=== PATIENT | female | born 1940 | race Caucasian/White ===

== ENCOUNTER 2021-09-08 19:12 | Inpatient (IN) ==
[2021-09-08] MEDS ORDERED: Famotidine 20 MG/2 ML VIAL IVP ONE (19:21)
[2021-09-08] MEDS ORDERED: GI Cocktail 40 ML EACH PO ONE (19:21)
[2021-09-08 20:03] LABS: Basophils % 0.5 %; Eosinophils # 0.1 K/mcL (0.0-0.6); Eosinophils % 0.9 %; Hematocrit 44.3 % (35.3-44.9); Hemoglobin 14.2 g/dL (11.5-15.4); Immature Granulocytes % 1.1 % (0-4); Lymphocytes % 15.9 %; Mean Corpuscular HGB Conc 32.1 g/dL (31.6-35.5); Mean Corpuscular Hemoglobin 28.4 pg (28.0-33.3); Mean Corpuscular Volume 88.6 fL (83.0-100.0); Mean Platelet Volume 10.4 fL (9.4-12.4); Monocytes # 0.8 K/mcL (0.0-1.3); Monocytes % 12.3 %; Neutrophils # 4.4 K/mcL (1.6-8.9); Platelet Count 226 K/mcL (140-400); Red Cell Distribution Width 14.4 % (11.5-14.5); Segmented Neutrophils % 69.3 %; White Blood Count 6.4 K/mcL (4.3-11.1)
[2021-09-08 20:14] LABS: INR 1.1; Prothrombin Time 12.8 Seconds (9.4-12.1)
[2021-09-08 20:16] LABS: Activated Partial Thrombo Time 40.9 Seconds (26.0-36.0)
[2021-09-08 20:21] LABS: Alanine Aminotransferase 316 Units/L (7-52); Albumin 3.9 g/dL (3.5-5.7); Albumin/Globulin Ratio 1.2 (1.1-2.2); Alkaline Phosphatase 351 Units/L (34-104); Aspartate Amino Transferase 224 Units/L (13-39); BUN/Creatinine Ratio 12 (6-26); Bilirubin,Direct 2.6 mg/dL (0.0-0.2); Bilirubin,Indirect 1.6 mg/dL (0.0-1.0); Bilirubin,Total 4.2 mg/dL (0.3-1.0); Blood Urea Nitrogen 9 mg/dL (8-23); Calcium 8.9 mg/dL (8.6-10.3); Carbon Dioxide 28 mEq/L (23-29); Chloride 100 mEq/L (98-107); Globulin 3.3 g/dL (2.4-3.5); Glucose 172 mg/dL (70-105); Lipase 7 Units/L (11-82); Osmolality,Calculated 287 (280-300); Potassium 3.4 mEq/L (3.5-5.1); Sodium 137 mEq/L (136-145); Total Protein 7.2 g/dL (6.4-8.9); Troponin I < 0.03 ng/mL (< 0.04); eGFR For African Americans > 60 (> 60); eGFR For Non-African Americans > 60 (> 60)
[2021-09-08] MEDS ORDERED: Isovue-370 500 ML BOTTLE IVP ONE (20:31)
[2021-09-08 20:32] LABS: Bacteria,Urine Few per hpf (None-Few); Bilirubin,Urine Moderate (Negative); Blood,Urine Negative (Negative); Clarity,Urine Turbid (Clear); Color,Urine Dark-Yellow (Yellow); Glucose,Urine (UA) Normal (Normal); Hyaline Casts,Urine Few per lpf (None Seen); Ketones,Urine Negative (Negative); Leukocyte Esterase,Urine Trace (Negative); Mucus,Urine Few per lpf (None-Few); Nitrite,Urine Negative (Negative); PH,Urine 6.5 pH Units (5.0-8.0); Protein,Urine Trace mg/dL (Neg-Trace); RBC,Urine 0-3 per hpf (0-3); Specific Gravity,Urine 1.019 (1.010-1.025); Squamous Epithelial Cell,Urine Many per hpf (None-Few)
[2021-09-08 20:35] LABS: Influenza A PCR Negative (Negative); Influenza B PCR Negative (Negative); Resp. Syncytial Virus PCR Negative (Negative)
[2021-09-08 20:39] LABS: SARS-CoV-2 by PCR (In House) Negative (Negative)
[2021-09-08] MEDS ORDERED: cefTRIAXone 1,000 MG in Water for inj. (sterile) 10 ML IVP ONE (21:50)
[2021-09-08] MEDS ORDERED: Ondansetron 4 MG/2 ML VIAL IVP PRN (23:29)
[2021-09-08] MEDS ORDERED: Naloxone 0.4 MG/ML INJ IVP PRN (23:29)
[2021-09-09] MEDS: 0.9 % Sodium Chloride 1,000 ML IVC SCH ×2 (00:32→15:13)
[2021-09-09] MEDS ORDERED: Dextrose 4 GM Chewable Tablets PO PRN ×2 (02:01)
[2021-09-09] MEDS ORDERED: D5% in Water 1,000 ML IVC PRN (02:01)
[2021-09-09] MEDS ORDERED: *HR* Dextrose 50 % in Water (Syg) 50 ML SYRINGE IVP PRN (02:01)
[2021-09-09] MEDS: rOPINIRole 1 MG TABLET PO SCH ×2 (03:12→20:43)
[2021-09-09 05:33] LABS: Basophils % 0.6 %; Eosinophils # 0.1 K/mcL (0.0-0.6); Hematocrit 40.8 % (35.3-44.9); Hemoglobin 12.9 g/dL (11.5-15.4); Immature Granulocytes % 1.2 % (0-4); Lymphocytes # 1.1 K/mcL (0.6-4.6); Lymphocytes % 23.2 %; Mean Corpuscular HGB Conc 31.6 g/dL (31.6-35.5); Mean Corpuscular Volume 88.7 fL (83.0-100.0); Mean Platelet Volume 10.3 fL (9.4-12.4); Monocytes # 0.7 K/mcL (0.0-1.3); Monocytes % 13.9 %; Neutrophils # 2.9 K/mcL (1.6-8.9); Platelet Count 204 K/mcL (140-400); Red Cell Distribution Width 14.3 % (11.5-14.5); Segmented Neutrophils % 60.1 %; White Blood Count 4.9 K/mcL (4.3-11.1)
[2021-09-09 05:40] LABS: INR 1.2
[2021-09-09] MEDS: Insulin LISPRO 300 UNITS/3 ML VIAL SUBQ SCH ×2 (05:48→12:17)
[2021-09-09 05:57] LABS: Alanine Aminotransferase 276 Units/L (7-52); Albumin 3.6 g/dL (3.5-5.7); Albumin/Globulin Ratio 1.2 (1.1-2.2); Alkaline Phosphatase 309 Units/L (34-104); Aspartate Amino Transferase 206 Units/L (13-39); BUN/Creatinine Ratio 15 (6-26); Bilirubin,Direct 2.4 mg/dL (0.0-0.2); Bilirubin,Indirect 1.3 mg/dL (0.0-1.0); Bilirubin,Total 3.7 mg/dL (0.3-1.0); Blood Urea Nitrogen 9 mg/dL (8-23); Calcium 8.6 mg/dL (8.6-10.3); Carbon Dioxide 23 mEq/L (23-29); Chloride 104 mEq/L (98-107); Chol/HDL Ratio 5.3 (0-4.9); Cholesterol 249 mg/dL (< 200); Globulin 2.9 g/dL (2.4-3.5); Glucose 126 mg/dL (70-105); HDL Cholesterol 47 mg/dL (40-59); LDL Cholesterol,Calculated 178 mg/dL (< 100); Magnesium 1.8 mg/dL (1.6-2.6); Osmolality,Calculated 284 (280-300); Potassium 3.8 mEq/L (3.5-5.1); Sodium 137 mEq/L (136-145); Total Protein 6.5 g/dL (6.4-8.9); Triglycerides 119 mg/dL (< 150); eGFR For African Americans > 60 (> 60); eGFR For Non-African Americans > 60 (> 60)
[2021-09-09 06:19] LABS: Hepatitis B Surface Antigen Nonreactive (Nonreactive)
[2021-09-09 06:48] LABS: Hepatitis B Core IgM Nonreactive (Nonreactive)
[2021-09-09 06:50] LABS: Hepatitis A Antibody IgM Nonreactive (Nonreactive); Hepatitis C Virus Antibody Nonreactive (Nonreactive)
[2021-09-09] MEDS: amLODIPine 5 MG TABLET PO SCH (09:04)
[2021-09-09] MEDS: cefTRIAXone 1,000 MG in 0.9 % Sodium Chloride 10 ML IVP SCH (09:04)
[2021-09-09 11:20] LABS: Estimated Average Glucose 157 mg/dl; Hemoglobin A1C 7.1 %
[2021-09-09] MEDS ORDERED: *HR* FentaNYL (PF) 100 MCG/2 ML VIAL ONE (11:36)
[2021-09-09] MEDS ORDERED: Albuterol 2.5 MG/3 ML NEBULIZER IH PRN (11:41)
[2021-09-09] MEDS ORDERED: Naloxone 0.4 MG/ML INJ IVP PRN (11:41)
[2021-09-09] MEDS ORDERED: Nitroglycerin 0.4 MG TAB.SUBL SL PRN (11:41)
[2021-09-09] MEDS ORDERED: *HR* Rocuronium Bromide 50 MG/5 ML VIAL ONE (11:42)
[2021-09-09] MEDS ORDERED: *HR* Propofol 200 MG/20 ML VIAL IVP ONE (11:42)
[2021-09-09] MEDS ORDERED: Lidocaine -MPF 2% 2 ML VIAL ONE (11:42)
[2021-09-09] MEDS ORDERED: Indomethacin 50 MG SUPP.RECT RC ONE (12:15)
[2021-09-09] MEDS: Ciprofloxacin HCL Soln 5 ML BOTTLE BOTH EYES SCH ×3 (12:17→20:44)
[2021-09-09] MEDS ORDERED: Insulin LISPRO 300 UNITS/3 ML VIAL SUBQ SCH ×2 (16:30→21:00)
[2021-09-09] MEDS ORDERED: Insulin DETEMIR 100 UNIT/ML X5UNITS SUBQ SCH (21:00)
[2021-09-09] MEDS ORDERED: Latanoprost 2.5 ML BOTTLE BOTH EYES SCH (21:00)
[2021-09-10 01:32] LABS: Basophils % 0.4 %; Hematocrit 41.4 % (35.3-44.9); Hemoglobin 13.1 g/dL (11.5-15.4); Immature Granulocytes % 0.8 % (0-4); Lymphocytes # 0.7 K/mcL (0.6-4.6); Lymphocytes % 13.2 %; Mean Corpuscular HGB Conc 31.6 g/dL (31.6-35.5); Mean Corpuscular Hemoglobin 28.5 pg (28.0-33.3); Mean Platelet Volume 10.6 fL (9.4-12.4); Monocytes # 0.4 K/mcL (0.0-1.3); Monocytes % 6.9 %; Neutrophils # 4.1 K/mcL (1.6-8.9); Platelet Count 198 K/mcL (140-400); Red Cell Distribution Width 14.5 % (11.5-14.5); Segmented Neutrophils % 78.7 %; White Blood Count 5.2 K/mcL (4.3-11.1)
[2021-09-10 02:19] LABS: Alanine Aminotransferase 257 Units/L (7-52); Albumin 3.4 g/dL (3.5-5.7); Albumin/Globulin Ratio 1.1 (1.1-2.2); Alkaline Phosphatase 285 Units/L (34-104); Aspartate Amino Transferase 186 Units/L (13-39); BUN/Creatinine Ratio 15 (6-26); Bilirubin,Direct 0.3 mg/dL (0.0-0.2); Bilirubin,Indirect 1.2 mg/dL (0.0-1.0); Bilirubin,Total 1.5 mg/dL (0.3-1.0); Blood Urea Nitrogen 8 mg/dL (8-23); Calcium 8.4 mg/dL (8.6-10.3); Carbon Dioxide 23 mEq/L (23-29); Chloride 105 mEq/L (98-107); Globulin 3.1 g/dL (2.4-3.5); Glucose 183 mg/dL (70-105); Magnesium 1.9 mg/dL (1.6-2.6); Osmolality,Calculated 281 (280-300); Sodium 134 mEq/L (136-145); Total Protein 6.5 g/dL (6.4-8.9); eGFR For African Americans > 60 (> 60); eGFR For Non-African Americans > 60 (> 60)
[2021-09-10] MEDS: Ciprofloxacin HCL Soln 5 ML BOTTLE BOTH EYES SCH ×7 (04:16→23:51)
[2021-09-10] MEDS ORDERED: Insulin LISPRO 300 UNITS/3 ML VIAL SUBQ SCH ×2 (06:00→12:00)
[2021-09-10] MEDS: amLODIPine 5 MG TABLET PO SCH (07:50)
[2021-09-10] MEDS: cefTRIAXone 1,000 MG in 0.9 % Sodium Chloride 10 ML IVP SCH (07:50)
[2021-09-10] MEDS ORDERED: *HR* Propofol 200 MG/20 ML VIAL IVP ONE (08:55)
[2021-09-10] MEDS ORDERED: Lidocaine -MPF 4% 5 ML AMPUL ONE (08:55)
[2021-09-10] MEDS ORDERED: Lidocaine -MPF 2% 2 ML VIAL ONE (08:55)
[2021-09-10] MEDS ORDERED: *HR* Succinylcholine 200 MG/10 ML VIAL IVP ONE (08:55)
[2021-09-10] MEDS ORDERED: *HR* FentaNYL (PF) 100 MCG/2 ML VIAL ONE (08:55)
[2021-09-10] MEDS ORDERED: Ondansetron 4 MG/2 ML VIAL ONE (08:55)
[2021-09-10] MEDS ORDERED: *HR* Rocuronium Bromide 50 MG/5 ML VIAL ONE (08:55)
[2021-09-10] MEDS ORDERED: *HR* OxyCODONE Immed Rel 5 MG TABLET PO PRN ×2 (09:21→11:13)
[2021-09-10] MEDS: *HR* HYDROmorphone PF 0.5 MG/0.5 ML SYRINGE IVP PRN ×3 (10:34→10:54)
[2021-09-10] MEDS ORDERED: Naloxone 0.4 MG/ML INJ IVP PRN ×2 (11:13)
[2021-09-10] MEDS ORDERED: D5% in Water 1,000 ML IVC PRN (11:13)
[2021-09-10] MEDS ORDERED: *HR* HYDROmorphone PF 0.5 MG/0.5 ML SYRINGE IVP PRN (11:13)
[2021-09-10] MEDS ORDERED: Nitroglycerin 0.4 MG TAB.SUBL SL PRN (11:13)
[2021-09-10] MEDS ORDERED: Dextrose 4 GM Chewable Tablets PO PRN ×2 (11:13)
[2021-09-10] MEDS ORDERED: Ondansetron 4 MG/2 ML VIAL IVP PRN (11:13)
[2021-09-10] MEDS ORDERED: *HR* Dextrose 50 % in Water (Syg) 50 ML SYRINGE IVP PRN (11:13)
[2021-09-10] MEDS: Insulin LISPRO 300 UNITS/3 ML VIAL SUBQ SCH (17:08)
[2021-09-10] MEDS: rOPINIRole 1 MG TABLET PO SCH (20:02)
[2021-09-10] MEDS: Latanoprost 2.5 ML BOTTLE BOTH EYES SCH (20:02)
[2021-09-11 05:19] LABS: Basophils % 0.3 %; Eosinophils # 0.1 K/mcL (0.0-0.6); Hematocrit 37.7 % (35.3-44.9); Lymphocytes # 1.5 K/mcL (0.6-4.6); Mean Corpuscular HGB Conc 30.2 g/dL (31.6-35.5); Mean Corpuscular Hemoglobin 27.5 pg (28.0-33.3); Mean Corpuscular Volume 91.1 fL (83.0-100.0); Mean Platelet Volume 10.5 fL (9.4-12.4); Monocytes # 0.8 K/mcL (0.0-1.3); Monocytes % 13.8 %; Neutrophils # 3.4 K/mcL (1.6-8.9); Platelet Count 190 K/mcL (140-400); Red Blood Count 4.14 M/mcL (3.82-4.97); Red Cell Distribution Width 14.9 % (11.5-14.5); Segmented Neutrophils % 57.9 %; White Blood Count 5.9 K/mcL (4.3-11.1)
[2021-09-11 05:23] LABS: Hemoglobin 11.4 g/dL (11.5-15.4)
[2021-09-11] MEDS: Ciprofloxacin HCL Soln 5 ML BOTTLE BOTH EYES SCH ×6 (05:39→23:39)
[2021-09-11 05:42] LABS: Alanine Aminotransferase 238 Units/L (7-52); Albumin 3.2 g/dL (3.5-5.7); Albumin/Globulin Ratio 1.3 (1.1-2.2); Alkaline Phosphatase 225 Units/L (34-104); Aspartate Amino Transferase 157 Units/L (13-39); BUN/Creatinine Ratio 19 (6-26); Bilirubin,Direct 0.4 mg/dL (0.0-0.2); Bilirubin,Indirect 0.7 mg/dL (0.0-1.0); Bilirubin,Total 1.1 mg/dL (0.3-1.0); Blood Urea Nitrogen 14 mg/dL (8-23); Calcium 8.3 mg/dL (8.6-10.3); Carbon Dioxide 26 mEq/L (23-29); Chloride 105 mEq/L (98-107); Globulin 2.5 g/dL (2.4-3.5); Glucose 163 mg/dL (70-105); Osmolality,Calculated 286 (280-300); Potassium 3.9 mEq/L (3.5-5.1); Sodium 136 mEq/L (136-145); Total Protein 5.7 g/dL (6.4-8.9); eGFR For African Americans > 60 (> 60); eGFR For Non-African Americans > 60 (> 60)
[2021-09-11] MEDS: cefTRIAXone 1,000 MG in 0.9 % Sodium Chloride 10 ML IVP SCH (10:16)
[2021-09-11] MEDS: Simethicone 80 MG TAB.CHEW PO SCH ×3 (10:17→20:15)
[2021-09-11] MEDS: amLODIPine 5 MG TABLET PO SCH (10:17)
[2021-09-11] MEDS: Insulin LISPRO 300 UNITS/3 ML VIAL SUBQ SCH ×3 (10:30→18:02)
[2021-09-11] MEDS: rOPINIRole 1 MG TABLET PO SCH (20:15)
[2021-09-11] MEDS: Latanoprost 2.5 ML BOTTLE BOTH EYES SCH (20:16)
[2021-09-12 02:13] LABS: Basophils % 0.3 %; Eosinophils # 0.1 K/mcL (0.0-0.6); Eosinophils % 1.9 %; Hematocrit 39.3 % (35.3-44.9); Hemoglobin 12.2 g/dL (11.5-15.4); Lymphocytes # 1.9 K/mcL (0.6-4.6); Mean Corpuscular Hemoglobin 28.3 pg (28.0-33.3); Mean Corpuscular Volume 91.2 fL (83.0-100.0); Mean Platelet Volume 10.4 fL (9.4-12.4); Monocytes # 0.8 K/mcL (0.0-1.3); Monocytes % 13.1 %; Neutrophils # 3.3 K/mcL (1.6-8.9); Platelet Count 191 K/mcL (140-400); Red Blood Count 4.31 M/mcL (3.82-4.97); Red Cell Distribution Width 14.9 % (11.5-14.5); Segmented Neutrophils % 53.7 %; White Blood Count 6.2 K/mcL (4.3-11.1)
[2021-09-12 02:32] LABS: Alanine Aminotransferase 212 Units/L (7-52); Albumin 3.4 g/dL (3.5-5.7); Albumin/Globulin Ratio 1.1 (1.1-2.2); Alkaline Phosphatase 219 Units/L (34-104); Aspartate Amino Transferase 107 Units/L (13-39); BUN/Creatinine Ratio 18 (6-26); Bilirubin,Direct 0.4 mg/dL (0.0-0.2); Bilirubin,Indirect 0.6 mg/dL (0.0-1.0); Blood Urea Nitrogen 14 mg/dL (8-23); Carbon Dioxide 27 mEq/L (23-29); Chloride 103 mEq/L (98-107); Glucose 176 mg/dL (70-105); Osmolality,Calculated 289 (280-300); Potassium 4.5 mEq/L (3.5-5.1); Sodium 137 mEq/L (136-145); Total Protein 6.4 g/dL (6.4-8.9); eGFR For African Americans > 60 (> 60); eGFR For Non-African Americans > 60 (> 60)
[2021-09-12] MEDS: Ciprofloxacin HCL Soln 5 ML BOTTLE BOTH EYES SCH ×2 (05:12→08:27)
[2021-09-12] MEDS: Insulin LISPRO 300 UNITS/3 ML VIAL SUBQ SCH (07:50)
[2021-09-12] MEDS: cefTRIAXone 1,000 MG in 0.9 % Sodium Chloride 10 ML IVP SCH (08:25)
[2021-09-12] MEDS: amLODIPine 5 MG TABLET PO SCH (08:25)
[2021-09-12] MEDS: Simethicone 80 MG TAB.CHEW PO SCH (08:25)
[2021-09-12 11:03] VITALS: BP 145/80; PULSE 78; TEMP 97.8; O2SAT 94
== END 2021-09-12 11:48 | disposition home or self-care (01) | DRG 417 ==
LOC: EMEROOARM 19:12 → 3ANU 19:12 → SUATTDRO 23:00 → 3ANU 23:35
PROVIDERS: ADMIT Student in an Organized Health Care Education/Training Program; ATTEND Family Medicine